=== PATIENT | female | born 1990 | race Caucasian/White ===

== ENCOUNTER 2023-09-03 10:12 | Emergency (ER) | payer OTHER ==
[~2023-09-03] VITALS: Ht 175.3 cm; Wt 81.6 kg
[2023-09-03 10:22] VITALS: BP_SYST 115; PULSE 61; RESP 16; TEMP 97.2; O2SAT 100
[2023-09-03] MEDS ORDERED: BARIUM SULFATE 135 ML SUSP.RECON (E-Z-HD) PO ONE (11:09)
[2023-09-03 12:24] VITALS: BP_SYST 109; PULSE 65; RESP 20; TEMP 97.5; O2SAT 96
== END 2023-09-03 12:24 | disposition home or self-care (01) ==
LOC: SED 10:12
DX: T18.9XXA Foreign body of alimentary tract, part unspecified, initial encounter (principal); Z79.899 Other long term (current) drug therapy; W44.8XXA Other foreign body entering into or through a natural orifice, initial encounter; Y93.89 Activity, other specified; Y92.89 Other specified places as the place of occurrence of the external cause; Y99.8 Other external cause status
CPT/HCPCS: 74220-TC; 81025; 99283

== ENCOUNTER 2023-09-04 06:54 | Day surgery (SDC) | payer OTHER ==
[~2023-09-04] VITALS: Ht 175.3 cm; Wt 68.0 kg
[2023-09-04 07:38] LABS: HCG,QUAL RESULT NEGATIVE (NEGATIVE)
[2023-09-04] MEDS ORDERED: MIDAZOLAM HCL 5 MG/5 ML VIAL ONE (07:41)
[2023-09-04] MEDS ORDERED: SIMETHICONE 40 MG/0.6 ML ML ONE (07:41)
[2023-09-04] MEDS ORDERED: MEPERIDINE 100 MG INJ. 100 MG/ML VIAL ONE (07:41)
[2023-09-04 12:15] VITALS: BP_SYST 121; PULSE 61; RESP 20; TEMP 98.9; O2SAT 99
== END 2023-09-04 08:38 | disposition home or self-care (01) ==
LOC: SMU 06:54 → SDS 06:54
PROVIDERS: ATTEND Student in an Organized Health Care Education/Training Program
DX: R13.10 Dysphagia, unspecified (principal); K29.50 Unspecified chronic gastritis without bleeding; K20.90 Esophagitis, unspecified without bleeding; Z79.899 Other long term (current) drug therapy
CPT/HCPCS: 43239; 99152; 84703; 88305; 88312; 88313; G0378; J2250; J2175